=== PATIENT | female | born 1940 | race Caucasian/White ===

== ENCOUNTER 2020-11-06 05:37 | Day surgery (SDC) | payer OTHER, BC ==
[2020-11-04 09:05] VITALS: BMI 20.6
[2020-11-06 09:12] VITALS: TEMP 97.1
[2020-11-06 09:53] VITALS: BP 111/66; PULSE 78
== END 2020-11-06 10:00 | disposition home or self-care (01) ==
LOC: JASU-ENDO 05:37
PROVIDERS: ATTEND Internal Medicine Gastroenterology
PROC: 0DBH8ZX Excision of Cecum, Via Natural or Artificial Opening Endoscopic, Diagnostic (ICD-10-PCS; principal; 2020-11-06 08:39)
DX: D12.0 Benign neoplasm of cecum (principal); Z86.010 Personal history of colon polyps
CPT/HCPCS: 88305-TC